=== PATIENT | male | born 1995 | race Caucasian/White ===

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

== ENCOUNTER 2017-12-03 11:37 | Emergency (ER) | payer OTHER ==
[~2017-12-03] VITALS: Ht 182.9 cm; Wt 68.2 kg
[2017-12-03 11:39] VITALS: BP 161/77; TEMP 97.8
[2017-12-03 12:21] LABS: ALBUMIN 5.1 gm/dL (3.5-5.0); BILIRUBIN,TOTAL 1.1 mg/dL (0.0-1.0); C-REACTIVE PROTEIN 3.8 mg/dL (0.0-0.9); CALCIUM 9.5 mg/dL (8.4-10.2); CREATININE, serum 1.07 mg/dL (0.66-1.25); POTASSIUM 4.7 mmol/L (3.4-5.0); TOTAL PROTEIN 8.3 gm/dL (6.4-8.2)
[2017-12-03 12:36] LABS: BASO # 0.1 (0.0-0.2); BASO % 0.6 % (0.0-2.0); EOS % 0.1 % (0-4.0); GRAN # 12.2 (1.4-6.5); GRAN % 85.4 % (42.2-75.2); LYMPH % 6.6 % (20.0-51.0); MEAN CELL VOLUME 81 fl (80.0-95.0); MEAN CORPUSCULAR HGB CONC 34 g/dl (33.0-37.0); MEAN PLATELET VOLUME 10.4 fl (7.4-10.4); MONO % 6.8 % (1.7-9.3); PLATELET COUNT 269 K/mm3 (130-400); REDCELL DISTRIBUTION WIDTH-CV 13.3 % (11.5-14.5)
[2017-12-03 12:37] LABS: HEMATOCRIT 56.9 % (36.0-47.0); HEMOGLOBIN 19.3 g/dl (12.5-16.1); MEAN CORPUSCULAR HEMOGLOBIN 28 pg (26.0-32.0)
[2017-12-03 13:08] LABS: COLLECTION METHOD CLEAN CATCH
[2017-12-03 13:15] LABS: MUCOUS Present /lpf; PH 5 (5-8); SQUAMOUS EPITHELIAL 0-2 /hpf; URINE APPEARANCE Hazy; URINE BACTERIA None Seen /hpf; URINE BILIRUBIN Negative (NEGATIVE); URINE BLOOD Negative (NEGATIVE); URINE COLOR Yellow; URINE GLUCOSE Negative (NEGATIVE); URINE KETONE 2+ (NEGATIVE); URINE LEUKOCYTE ESTERASE Negative (NEGATIVE); URINE NITRATE Negative (NEGATIVE); URINE PROTEIN(semi-quant) 1+ (NEGATIVE); URINE RBC 0-2 /hpf; URINE UROBILINOGEN Negative (NEGATIVE)
[2017-12-03 14:15] VITALS: PULSE 88
== END 2017-12-03 14:14 | disposition home or self-care (01) ==
LOC: COL.ER 11:37
PROVIDERS: Physician Assistant
DX: R19.7 Diarrhea, unspecified (principal); R11.2 Nausea with vomiting, unspecified; F17.210 Nicotine dependence, cigarettes, uncomplicated
CPT/HCPCS: J1885; J2405; J7030

== ENCOUNTER 2018-11-21 05:46 | Emergency (ER) | payer SELFPAY ==
[~2018-11-21] VITALS: Ht 182.9 cm; Wt 70.5 kg
[2018-11-21 05:49] VITALS: TEMP 98.4
[2018-11-21 07:37] LABS: BASO # 0.1 (0.0-0.2); BASO % 0.4 % (0.0-2.0); EOS # 0.5 (0.0-0.7); EOS % 2.4 % (0-4.0); GRAN # 15.4 (1.4-6.5); GRAN % 78.3 % (42.2-75.2); HEMATOCRIT 51.3 % (42.0-52.0); HEMOGLOBIN 16.9 g/dl (13.5-18.0); LYMPH # 2.4 (1.2-3.4); LYMPH % 12.3 % (20.0-51.0); MEAN CELL VOLUME 86 fl (80.0-100.0); MEAN CORPUSCULAR HEMOGLOBIN 28 pg (27.0-31.0); MEAN CORPUSCULAR HGB CONC 33 g/dl (33.0-37.0); MEAN PLATELET VOLUME 9.5 fl (7.4-10.4); MONO # 1.2 (0.1-0.6); MONO % 6.2 % (1.7-9.3); PLATELET COUNT 244 K/mm3 (130-400); REDCELL DISTRIBUTION WIDTH-CV 12.6 % (11.5-14.5)
[2018-11-21 07:51] LABS: ALBUMIN 4.7 gm/dL (3.5-5.0); BILIRUBIN,TOTAL 1.3 mg/dL (0.0-1.0); CALCIUM 9.7 mg/dL (8.4-10.2); CREATININE, serum 1.05 mg/dL (0.66-1.25); POTASSIUM 4.7 mmol/L (3.4-5.0); TOTAL PROTEIN 8.2 gm/dL (6.4-8.2)
[2018-11-21] MEDS ORDERED: NORCO 325 MG-51 TAB PO (09:53)
[2018-11-21] MEDS ORDERED: CEPHALEXIN500 M1 PO (09:53)
[2018-11-21 10:04] VITALS: BP 112/78; PULSE 77
== END 2018-11-21 10:05 | disposition home or self-care (01) ==
LOC: COL.ER 05:46
PROVIDERS: Emergency Medicine
DX: S01.511A Laceration without foreign body of lip, initial encounter (principal); F17.210 Nicotine dependence, cigarettes, uncomplicated; F12.90 Cannabis use, unspecified, uncomplicated; Y00.XXXA Assault by blunt object, initial encounter; Y92.009 Unspecified place in unspecified non-institutional (private) residence as the place of occurrence of the external cause
CPT/HCPCS: A4216; J0690

== ENCOUNTER → 2018-12-04 | Outpatient (REF) ==
[~2018-12-04] MED LIST changes: +CEPHALEXIN500 M1 PO
== END ==
LOC: COL.LAB 23:18
DX: Z02.83 Encounter for blood-alcohol and blood-drug test (principal)

== ENCOUNTER 2018-12-24 02:17 | Emergency (ER) | payer SELFPAY ==
[2018-12-24 02:19] VITALS: BP 129/69; PULSE 140; TEMP 98.2
== END 2018-12-24 02:26 | disposition home or self-care (01) ==
LOC: COL.ER 02:17
DX: S01.511D Laceration without foreign body of lip, subsequent encounter (principal); X58.XXXD Exposure to other specified factors, subsequent encounter

== ENCOUNTER 2019-04-20 21:50 | Emergency (ER) | payer SELFPAY ==
[~2019-04-20] VITALS: Ht 185.4 cm; Wt 70.5 kg
[2019-04-20 21:56] VITALS: BP 155/85; TEMP 97.6
[2019-04-20] MEDS ORDERED: PREDNISONE20 MG PO (23:08)
[2019-04-20 23:39] VITALS: PULSE 95
== END 2019-04-20 23:35 | disposition home or self-care (01) ==
LOC: COL.ER 21:50
DX: R06.02 Shortness of breath (principal); J45.909 Unspecified asthma, uncomplicated; F17.210 Nicotine dependence, cigarettes, uncomplicated
CPT/HCPCS: J7512

== ENCOUNTER 2019-05-05 05:25 | Emergency (ER) | payer OTHER ==
[~2019-05-05] VITALS: Ht 182.9 cm; Wt 70.5 kg
[2019-05-05 07:39] LABS: COLLECTION METHOD CLEAN CATCH
[2019-05-05 07:50] LABS: BASO # 0.1 (0.0-0.2); BASO % 0.6 % (0.0-2.0); EOS # 0.3 (0.0-0.7); GRAN # 5.8 (1.4-6.5); GRAN % 59.7 % (42.2-75.2); HEMATOCRIT 47.5 % (42.0-52.0); LYMPH # 2.8 (1.2-3.4); LYMPH % 28.8 % (20.0-51.0); MEAN CELL VOLUME 84 fl (80.0-100.0); MEAN CORPUSCULAR HEMOGLOBIN 28 pg (27.0-31.0); MEAN CORPUSCULAR HGB CONC 34 g/dl (33.0-37.0); MEAN PLATELET VOLUME 10.2 fl (7.4-10.4); MONO # 0.8 (0.1-0.6); MONO % 7.7 % (1.7-9.3); PLATELET COUNT 228 K/mm3 (130-400); RED BLOOD COUNT 5.67 M/mm3 (4.20-5.60); REDCELL DISTRIBUTION WIDTH-CV 12.6 % (11.5-14.5)
[2019-05-05 07:56] LABS: ACETAMINOPHEN < 10 ug/mL (10-30); ALANINE AMINOTRANSFERASE 25 U/L (21-72); ALBUMIN 4.3 gm/dL (3.5-5.0); ALCOHOL(ethanol),MEDICAL < 10 mg/dL; ALKALINE PHOSPHATASE 54 U/L (50-136); ANION GAP 11 mmol/L (7-16); AST,SGOT 26 U/L (15-37); BILIRUBIN,TOTAL 0.9 mg/dL (0.0-1.0); BLOOD UREA NITROGEN 14 mg/dL (9-20); CALCIUM 9.1 mg/dL (8.4-10.2); CARBON DIOXIDE 25 mmol/L (22-30); CHLORIDE 103 mmol/L (98-107); CREATININE, serum 0.86 (0.66-1.25); GLUCOSE 89 mg/dL (74-106); POTASSIUM 3.9 mmol/L (3.4-5.0); SALICYLATE < 1.0 mg/dL; SODIUM 139 mmol/L (137-145); TOTAL PROTEIN 7.1 gm/dL (6.4-8.2)
[2019-05-05 07:59] LABS: MUCOUS Present /lpf; PH 6 (5-8); SQUAMOUS EPITHELIAL 0-2 /hpf; URINE APPEARANCE Clear; URINE BACTERIA Rare /hpf; URINE BILIRUBIN Negative (NEGATIVE); URINE BLOOD Negative (NEGATIVE); URINE COLOR Yellow; URINE GLUCOSE Negative (NEGATIVE); URINE KETONE Negative (NEGATIVE); URINE LEUKOCYTE ESTERASE Trace (NEGATIVE); URINE NITRATE Negative (NEGATIVE); URINE PROTEIN(semi-quant) Negative (NEGATIVE); URINE UROBILINOGEN Negative (NEGATIVE)
[2019-05-05 08:09] LABS: TRICYCLIC ANTIDEPRESS URINE NEGATIVE
[2019-05-05] MEDS ORDERED: XANAX 1MG1 MG PO (08:17)
[2019-05-05 08:55] VITALS: BP 119/64; TEMP 98.1
[2019-05-05] MEDS ORDERED: OMNICEF 300MG300 MG PO (11:14)
[2019-05-05 11:15] VITALS: PULSE 70
== END 2019-05-05 11:27 ==
LOC: COL.ER 05:25
PROVIDERS: Emergency Medicine
DX: N39.0 Urinary tract infection, site not specified (principal); R45.851 Suicidal ideations
CPT/HCPCS: A4216; J0696; Q9967

== ENCOUNTER 2019-09-02 10:29 | Emergency (ER) | payer SELFPAY ==
[~2019-09-02] VITALS: Ht 182.9 cm; Wt 72.7 kg
[~2019-09-02 10:29] MED LIST changes: +OMNICEF 300MG300 MG PO; +XANAX 1MG1 MG PO
[2019-09-02 10:32] VITALS: BP 128/74; TEMP 97.5
[2019-09-02] MEDS ORDERED: PREDNISONE20 MG PO (11:25)
[2019-09-02 11:49] VITALS: PULSE 102
== END 2019-09-02 11:45 | disposition home or self-care (01) ==
LOC: COL.ER 10:29
DX: J45.901 Unspecified asthma with (acute) exacerbation (principal)

== ENCOUNTER 2020-01-19 21:36 | Emergency (ER) | payer SELFPAY ==
[~2020-01-19] VITALS: Ht 185.4 cm; Wt 70.5 kg
[2020-01-19 21:38] VITALS: BP 111/53; TEMP 98
[2020-01-19 22:30] LABS: BASO # 0.1 (0.0-0.2); BASO % 0.6 % (0.0-2.0); EOS # 0.3 (0.0-0.7); EOS % 3.3 % (0-4.0); GRAN # 6.3 (1.4-6.5); GRAN % 62.1 % (42.2-75.2); HEMATOCRIT 43.8 % (42.0-52.0); HEMOGLOBIN 14.6 g/dl (13.5-18.0); LYMPH # 2.7 (1.2-3.4); LYMPH % 27.1 % (20.0-51.0); MEAN CELL VOLUME 84 fl (80.0-100.0); MEAN CORPUSCULAR HEMOGLOBIN 28 pg (27.0-31.0); MEAN CORPUSCULAR HGB CONC 33 g/dl (33.0-37.0); MEAN PLATELET VOLUME 10.1 fl (7.4-10.4); MONO # 0.6 (0.1-0.6); MONO % 6.3 % (1.7-9.3); PLATELET COUNT 236 K/mm3 (130-400); RED BLOOD COUNT 5.22 M/mm3 (4.20-5.60); REDCELL DISTRIBUTION WIDTH-CV 12.6 % (11.5-14.5)
[2020-01-19 22:41] LABS: ALANINE AMINOTRANSFERASE 54 U/L (4-49); ALKALINE PHOSPHATASE 52 U/L (50-136); ANION GAP 6 mmol/L (7-16); AST,SGOT 35 U/L (15-37); BILIRUBIN,TOTAL 0.3 mg/dL (0.0-1.0); BLOOD UREA NITROGEN 15 mg/dL (9-20); CALCIUM 9.4 mg/dL (8.4-10.2); CARBON DIOXIDE 27 mmol/L (22-30); CHLORIDE 103 mmol/L (98-107); CREATININE, serum 0.81 (0.66-1.25); GLUCOSE 93 mg/dL (74-106); POTASSIUM 4.2 mmol/L (3.4-5.0); SODIUM 136 mmol/L (137-145); TOTAL PROTEIN 6.8 gm/dL (6.4-8.2)
[2020-01-19 22:46] VITALS: PULSE 98
[2020-01-19 22:47] LABS: ALCOHOL(ethanol),MEDICAL < 10 mg/dL
== END 2020-01-19 22:46 | disposition left against medical advice (07) ==
LOC: COL.ER 21:36
PROVIDERS: Physician Assistant
DX: S00.93XA Contusion of unspecified part of head, initial encounter (principal); V49.88XA Car occupant (driver) (passenger) injured in other specified transport accidents, initial encounter